=== PATIENT | male | born 1945 | race Caucasian/White ===

== ENCOUNTER 2020-09-19 10:36 | Outpatient (CLI) | payer MEDICARE ==
[2020-09-19 18:30] LABS: SARS-CoV-2 PCR by NAA Not Detected (NotDetected)
== END 2020-09-19 10:37 | disposition home or self-care (01) ==
LOC: LABBT 10:36
PROVIDERS: ATTEND Nurse Practitioner Acute Care
DX: Z01.812 Encounter for preprocedural laboratory examination (principal); R16.0 Hepatomegaly, not elsewhere classified; Z20.822 Contact with and (suspected) exposure to COVID-19
CPT/HCPCS: U0003; U0005

== ENCOUNTER → 2020-09-24 | Day surgery (SDC) | payer MEDICARE ==
[2020-09-23 13:42] VITALS: BMI 29.6
[~2020-09-24] MED LIST: Acetaminophen 500 MG TAB ONE; Fentanyl 100 MCG/2 ML VIAL ONE; Midazolam HCl 2 mg/2 ml Vial ONE; Sodium Bicarbonate 2.5 MEQ/5 ML VIAL ONE
== END ==
LOC: CT 08:45
PROVIDERS: ATTEND Nurse Practitioner Acute Care
PROC: 0FB13ZX Excision of Right Lobe Liver, Percutaneous Approach, Diagnostic (ICD-10-PCS; principal; 2020-09-24)
DX: C22.0 Liver cell carcinoma (principal); I25.10 Atherosclerotic heart disease of native coronary artery without angina pectoris; G89.29 Other chronic pain; M54.9 Dorsalgia, unspecified; E78.5 Hyperlipidemia, unspecified; I10 Essential (primary) hypertension; F17.210 Nicotine dependence, cigarettes, uncomplicated; Z79.82 Long term (current) use of aspirin; Z79.899 Other long term (current) drug therapy; Z88.0 Allergy status to penicillin
CPT/HCPCS: 47000; 88307; 88313; 88333; 88334; 88341; 88342; J2250; J3010

== ENCOUNTER 2020-10-12 07:07 | Inpatient (IN) | payer OTHER, MEDICARE ==
[2020-10-12] MEDS ORDERED: Ondansetron PF 4 MG/2 ML Vial IVP PRN (07:41)
[2020-10-12] MEDS ORDERED: Meropenem 1 GM in Sodium Chloride 0.9% 100 ML IVPB SCH (07:43)
[2020-10-12] MEDS ORDERED: Acetaminophen 500 MG TAB PO PRN (07:53)
[2020-10-12] MEDS ORDERED: oxyCODONE 5 MG TAB PO PRN (07:53)
[2020-10-12] MEDS ORDERED: MEROPENEM 1 GM/50 ML 1 GM in Premix Bag 1 BAG IVPB SCH (09:00)
[2020-10-12] MEDS: Sodium Chloride 0.9% 1,000 ML IV SCH ×2 (09:44→22:43)
[2020-10-12] MEDS: Senokot S 8.6-50 MG TAB PO SCH ×2 (09:45→21:13)
[2020-10-12] MEDS: Polyethylene Glycol 3350 17 GM Packet PO SCH (09:45)
[2020-10-12] MEDS: Heparin 5,000 UNITS/ML VIAL SC SCH ×3 (09:45→21:13)
[2020-10-12] MEDS: Metoprolol Tartrate 50 MG TAB PO SCH ×2 (09:45→21:13)
[2020-10-12] MEDS: Nystatin 500,000 UNITS/5 ML UDCUP SSW SCH ×4 (09:45→21:13)
[2020-10-12] MEDS: MEROPENEM 1 GM/50 ML 1 GM in Premix Bag 1 BAG IVPB SCH (16:19)
[2020-10-12] MEDS ORDERED: oxyCODONE 5 MG TAB PO SCH (18:30)
[2020-10-12] MEDS: oxyCODONE 5 MG TAB PO PRN (21:12)
[2020-10-12] MEDS: hydrALAZINE 20 MG/ML VIAL SLOW IVP PRN (21:57)
[2020-10-12] MEDS ORDERED: VANCOMYCIN 1.75 GM/350 ML BAG 1.75 GM in Premix Bag 1 BAG IVPB SCH (23:00)
[2020-10-13] MEDS: MEROPENEM 1 GM/50 ML 1 GM in Premix Bag 1 BAG IVPB SCH ×3 (01:28→16:15)
[2020-10-13] MEDS: hydrALAZINE 20 MG/ML VIAL SLOW IVP PRN (01:28)
[2020-10-13 05:36] LABS: #Basophils 0.1 thou/uL (0.0-0.2); #Eosinphils 0.1 thou/uL (0.0-0.7); #Lymphocytes 2.6 thou/uL (1.20-3.40); #Neutrophils 8.2 thou/uL (1.40-6.50); %Basophils 0.7 % (0.0-1.0); %Eosinophils 0.9 % (0.0-10.0); %Lymphocytes 21.6 % (21.0-51.0); %Monocytes 8.7 % (0.0-10.0); %Neutrophils 68.1 % (42.0-75.0); Hemoglobin 17.9 g/dL (14.0-18.0); Mean Corpuscular HGB CONC 32.8 g/dL (32.0-36.0); Mean Corpuscular Hemoglobin 31.6 pg (27.0-31.0); Mean Corpuscular Volume 96.3 fL (78.0-98.0); Platelet Count 241 thou/uL (130-400); RBC Distribution Width 13.9 % (11.5-14.5); Red Blood Cell (RBC) Count 5.66 mill/uL (4.70-6.10)
[2020-10-13 05:50] LABS: Anion Gap 13 mmol/L (10-20); BUN (Urea Nitrogen) 18 mg/dL (8.4-25.7); Calc. Creatinine Clearance 103 mL/min (70-130); Calcium 9.7 mg/dL (7.8-10.44); Carbon Dioxide 18 mmol/L (23-31); Chloride 103 mmol/L (98-107); Glucose 92 mg/dL (83-110); Potassium 4.2 mmol/L (3.5-5.1); Sodium 130 mmol/L (136-145)
[2020-10-13] MEDS: Senokot S 8.6-50 MG TAB PO SCH ×2 (08:13→22:48)
[2020-10-13] MEDS: Metoprolol Tartrate 50 MG TAB PO SCH ×2 (08:13→22:49)
[2020-10-13] MEDS: Polyethylene Glycol 3350 17 GM Packet PO SCH (08:13)
[2020-10-13] MEDS: Nystatin 500,000 UNITS/5 ML UDCUP SSW SCH ×4 (08:20→22:48)
[2020-10-13] MEDS: Heparin 5,000 UNITS/ML VIAL SC SCH ×3 (08:22→22:48)
[2020-10-13] MEDS ORDERED: traMADol HCl 50 MG TAB PO PRN ×2 (08:31→08:37)
[2020-10-13] MEDS ORDERED: Simvastatin 40 MG TAB PO SCH (09:00)
[2020-10-13] MEDS ORDERED: Metoprolol Tartrate 50 MG TAB PO SCH (09:00)
[2020-10-13] MEDS ORDERED: Magnevist 469MG/ML 20 ML VIAL ONE (09:38)
[2020-10-13] MEDS: Ezetimibe 10 MG TAB PO SCH (09:39)
[2020-10-13] MEDS: Aspirin 81 mg Enteric Coated Tablet PO SCH (09:39)
[2020-10-13] MEDS: Sodium Chloride 0.9% 1,000 ML IV SCH (15:10)
[2020-10-13] MEDS: oxyCODONE 5 MG TAB PO PRN (16:21)
[2020-10-13 22:39] LABS: Vancomycin, Trough 11.8 ug/mL
[2020-10-13] MEDS: Lisinopril 2.5 MG TAB PO SCH (22:48)
[2020-10-14] MEDS: Sodium Chloride 0.9% 1,000 ML IV SCH ×2 (01:41→13:23)
[2020-10-14] MEDS: MEROPENEM 1 GM/50 ML 1 GM in Premix Bag 1 BAG IVPB SCH ×3 (01:43→16:17)
[2020-10-14] MEDS: oxyCODONE 5 MG TAB PO PRN ×2 (05:03→16:17)
[2020-10-14 06:07] LABS: Anion Gap 11 mmol/L (10-20); BUN (Urea Nitrogen) 17 mg/dL (8.4-25.7); CRP (Inflammatory) 4.12 mg/dL (= or < 0.5); Calc. Creatinine Clearance 91 mL/min (70-130); Calcium 9.4 mg/dL (7.8-10.44); Carbon Dioxide 23 mmol/L (23-31); Chloride 102 mmol/L (98-107); Glucose 81 mg/dL (83-110); Sodium 132 mmol/L (136-145)
[2020-10-14 06:17] LABS: #Eosinphils 0.1 thou/uL (0.0-0.7); #Lymphocytes 1.5 thou/uL (1.20-3.40); #Monocytes 0.8 thou/uL (0.11-0.59); #Neutrophils 7.5 thou/uL (1.40-6.50); %Basophils 0.4 % (0.0-1.0); %Eosinophils 1.5 % (0.0-10.0); %Lymphocytes 15.1 % (21.0-51.0); %Monocytes 8.3 % (0.0-10.0); %Neutrophils 74.8 % (42.0-75.0); Hemoglobin 16.3 g/dL (14.0-18.0); Mean Corpuscular HGB CONC 30.8 g/dL (32.0-36.0); Mean Corpuscular Hemoglobin 29.4 pg (27.0-31.0); Mean Corpuscular Volume 95.5 fL (78.0-98.0); Mean Platelet Volume 8.4 fL (7.4-10.4); Platelet Count 214 thou/uL (130-400); Red Blood Cell (RBC) Count 5.56 mill/uL (4.70-6.10); White Blood Cell (WBC) Count 10.1 thou/uL (4.8-10.8)
[2020-10-14] MEDS: Polyethylene Glycol 3350 17 GM Packet PO SCH (07:47)
[2020-10-14] MEDS: Senokot S 8.6-50 MG TAB PO SCH ×2 (07:47→21:12)
[2020-10-14] MEDS: Aspirin 81 mg Enteric Coated Tablet PO SCH (08:49)
[2020-10-14] MEDS: Ezetimibe 10 MG TAB PO SCH (08:49)
[2020-10-14] MEDS: Metoprolol Tartrate 50 MG TAB PO SCH ×2 (08:49→21:12)
[2020-10-14] MEDS: Simvastatin 20 MG TAB PO SCH (08:50)
[2020-10-14] MEDS: Nystatin 500,000 UNITS/5 ML UDCUP SSW SCH ×4 (08:51→21:13)
[2020-10-14] MEDS: Heparin 5,000 UNITS/ML VIAL SC SCH ×3 (08:52→21:14)
[2020-10-14] MEDS: Lisinopril 2.5 MG TAB PO SCH ×2 (21:12→21:13)
[2020-10-15] MEDS: MEROPENEM 1 GM/50 ML 1 GM in Premix Bag 1 BAG IVPB SCH ×2 (01:09→08:51)
[2020-10-15 05:52] LABS: #Eosinphils 0.1 thou/uL (0.0-0.7); #Lymphocytes 2.2 thou/uL (1.20-3.40); #Monocytes 0.9 thou/uL (0.11-0.59); #Neutrophils 4.4 thou/uL (1.40-6.50); %Basophils 0.5 % (0.0-1.0); %Eosinophils 1.2 % (0.0-10.0); %Lymphocytes 28.9 % (21.0-51.0); %Monocytes 11.4 % (0.0-10.0); Mean Corpuscular Hemoglobin 30.6 pg (27.0-31.0); Mean Corpuscular Volume 95.7 fL (78.0-98.0); Mean Platelet Volume 8.1 fL (7.4-10.4); Platelet Count 198 thou/uL (130-400); RBC Distribution Width 13.7 % (11.5-14.5); Red Blood Cell (RBC) Count 4.89 mill/uL (4.70-6.10); White Blood Cell (WBC) Count 7.5 thou/uL (4.8-10.8)
[2020-10-15 06:24] LABS: Anion Gap 16 mmol/L (10-20); BUN (Urea Nitrogen) 16 mg/dL (8.4-25.7); Calc. Creatinine Clearance 97 mL/min (70-130); Carbon Dioxide 18 mmol/L (23-31); Chloride 103 mmol/L (98-107); Glucose 83 mg/dL (83-110); Potassium 3.9 mmol/L (3.5-5.1); Sodium 133 mmol/L (136-145)
[2020-10-15] MEDS: Simvastatin 20 MG TAB PO SCH (08:51)
[2020-10-15] MEDS: Heparin 5,000 UNITS/ML VIAL SC SCH ×3 (08:51→22:20)
[2020-10-15] MEDS: Aspirin 81 mg Enteric Coated Tablet PO SCH (08:51)
[2020-10-15] MEDS: Metoprolol Tartrate 50 MG TAB PO SCH ×2 (08:51→22:20)
[2020-10-15] MEDS: Ezetimibe 10 MG TAB PO SCH (08:51)
[2020-10-15] MEDS: Senokot S 8.6-50 MG TAB PO SCH ×2 (08:53→22:21)
[2020-10-15] MEDS: Polyethylene Glycol 3350 17 GM Packet PO SCH (08:53)
[2020-10-15] MEDS: Nystatin 500,000 UNITS/5 ML UDCUP SSW SCH ×5 (08:53→22:20)
[2020-10-15] MEDS: oxyCODONE 5 MG TAB PO PRN (11:23)
[2020-10-15] MEDS: Sodium Chloride 0.9% 1,000 ML IV SCH ×2 (16:07→22:22)
[2020-10-16] MEDS: Heparin 5,000 UNITS/ML VIAL SC SCH ×3 (09:02→21:00)
[2020-10-16] MEDS: Nystatin 500,000 UNITS/5 ML UDCUP SSW SCH ×4 (09:02→21:00)
[2020-10-16] MEDS: Ezetimibe 10 MG TAB PO SCH (09:03)
[2020-10-16] MEDS: Aspirin 81 mg Enteric Coated Tablet PO SCH (09:03)
[2020-10-16] MEDS: Metoprolol Tartrate 50 MG TAB PO SCH ×2 (09:03→21:04)
[2020-10-16] MEDS: Simvastatin 20 MG TAB PO SCH (09:03)
[2020-10-16] MEDS: Senokot S 8.6-50 MG TAB PO SCH ×2 (09:06→21:04)
[2020-10-16] MEDS: Polyethylene Glycol 3350 17 GM Packet PO SCH (09:06)
[2020-10-16] MEDS ORDERED: Magnesium Citrate 300 ML BOT PO SCH (13:30)
[2020-10-16] MEDS: Lisinopril 2.5 MG TAB PO SCH (21:01)
[2020-10-16] MEDS: Sodium Chloride 0.9% 1,000 ML IV SCH (21:10)
[2020-10-17] MEDS: Sodium Chloride 0.9% 1,000 ML IV SCH ×2 (03:04→11:58)
[2020-10-17] MEDS ORDERED: LENVATINIB 4 MG PO SCH ×2 (09:00→11:45)
[2020-10-17] MEDS: Ezetimibe 10 MG TAB PO SCH (09:33)
[2020-10-17] MEDS: Metoprolol Tartrate 50 MG TAB PO SCH ×2 (09:33→19:54)
[2020-10-17] MEDS: Nystatin 500,000 UNITS/5 ML UDCUP SSW SCH ×4 (09:33→19:54)
[2020-10-17] MEDS: Senokot S 8.6-50 MG TAB PO SCH ×2 (09:33→19:54)
[2020-10-17] MEDS: Heparin 5,000 UNITS/ML VIAL SC SCH ×3 (09:33→19:54)
[2020-10-17] MEDS: Simvastatin 20 MG TAB PO SCH (09:33)
[2020-10-17] MEDS: Polyethylene Glycol 3350 17 GM Packet PO SCH (09:33)
[2020-10-17] MEDS: Aspirin 81 mg Enteric Coated Tablet PO SCH (09:33)
[2020-10-17] MEDS: Lisinopril 2.5 MG TAB PO SCH (19:54)
[2020-10-17 21:01] VITALS: BP 190/112; TEMP 98.3
== END 2020-10-17 21:33 | disposition swing bed (61) | DRG 71 ==
LOC: 3SE 07:07
PROVIDERS: ADMIT Family Medicine; ATTEND Hospitalist
DX: G93.41 Metabolic encephalopathy (principal); C22.0 Liver cell carcinoma; S32.019A Unspecified fracture of first lumbar vertebra, initial encounter for closed fracture; E87.1 Hypo-osmolality and hyponatremia; E87.2 Acidosis; Z66 Do not resuscitate; Z20.822 Contact with and (suspected) exposure to COVID-19; Z51.5 Encounter for palliative care; K59.00 Constipation, unspecified; I25.10 Atherosclerotic heart disease of native coronary artery without angina pectoris; E78.5 Hyperlipidemia, unspecified; I10 Essential (primary) hypertension; G89.29 Other chronic pain; F17.210 Nicotine dependence, cigarettes, uncomplicated; E86.0 Dehydration; B37.9 Candidiasis, unspecified; W18.30XA Fall on same level, unspecified, initial encounter; Y92.231 Patient bathroom in hospital as the place of occurrence of the external cause; Z92.21 Personal history of antineoplastic chemotherapy; Z79.899 Other long term (current) drug therapy; Z95.5 Presence of coronary angioplasty implant and graft; D72.829 Elevated white blood cell count, unspecified; D75.1 Secondary polycythemia; Z88.0 Allergy status to penicillin
CPT/HCPCS: 36415; 70450; 70553; 72072; 72100; 72125; 80048; 80202; 84145; 85025; 86140; A9579; J0360; J1644; J2185; J3370; J7050